=== PATIENT | male | born 1975 | race Caucasian/White ===

== ENCOUNTER 2016-11-30 10:07 | Emergency (ER) | payer OTHER ==
[2016-11-30 10:18] VITALS: BP 133/77; PULSE 80; TEMP 98.1; BMI 45.6
[2016-11-30] MEDS ORDERED: predniSONE 20 MG TABLET (UD) PO ONE (10:48)
[2016-11-30] MEDS ORDERED: ALBUTEROL SO4 2.5/IPRATROPIUM 0.5 INH SOL 3 ML VIAL.NEB. NEB ONE ×2 (10:48→10:49)
--- NOTE | 2016-11-30 10:49 | PDOC ---
History of Present Illness - General Chief Complaint: Asthma Stated Complaint: SOB Time Seen by Provider: 11/30/16 10:48 History Source: Patient Exam Limitations: No Limitations - History of Present Illness Initial Comments: 11/30/16 10:49 Patient came to emergency department for evaluation of cough, wheezing, cold symptoms that exacerbated his asthma. Denies ear or throat pain pain. No fevers and no phlegm production. States has been using albuterol at home but was not resolving well. 11/30/16 12:28 11/30/16 15:08 Timing/Duration: reports: constant, changing over time, getting worse Severity: reports: mild, moderate Associated Symptoms: reports: cough, fever/chills, nasal congestion, nasal drainage, shortness of breath. denies: denies symptoms Past History - Travel Traveled outside of the country in the last 30 days: No Close contact w/someone who was outside of country & ill: No - Past Medical History Allergies/Adverse Reactions: Allergies Allergy/AdvReac Type Severity Reaction Status Date / Time Iodinated Contrast Media - Allergy Severe seizures Verified 11/30/16 10:18 Oral and shellfish derived Allergy Intermediate Verified 11/30/16 10:18 Home Medications: Ambulatory Orders Prednisone [Deltasone -] 20 mg PO BID #10 tablet 11/30/16 Asthma: Yes - Immunization History Immunization Up to Date: Yes - Psycho/Social/Smoking Cessation Hx Anxiety: No Suicidal Ideation: No Smoking History: Never smoked Have you smoked in the past 12 months: Yes Number of Cigarettes Smoked Daily: 10 If you are a former smoker, when did you quit?: aug 2016 Information on smoking cessation initiated: No 'Breaking Loose' booklet given: 05/01/16 Hx Alcohol Use: No Drug/Substance Use Hx: No Substance Use Type: Alcohol Respiratory Specific PMHX - Complaint Specific PMHX Bronchitis: No Pneumonia: No Pulmonary Embolus: No Review of Systems - Review of Systems Able to Perform ROS?: Yes Is the patient limited [place] proficient: Yes Constitutional: Yes: Symptoms Reported, See HPI, Malaise. No: Chills, Fever HEENTM: Yes: Symptoms Reported, Nose Congestion. No: Throat Pain, Throat Swelling Respiratory: Yes: Symptoms reported, See HPI, Cough, Shortness of Breath, Wheezing Integumentary: Yes: See HPI. No: Symptoms Reported Neurological: No: Symptoms reported All Other Systems: Reviewed and Negative *Physical Exam - Vital Signs Last Vital Signs Temp Pulse Resp BP Pulse Ox 98.1 F 80 18 133/77 96 11/30/16 10:14 11/30/16 10:14 11/30/16 10:14 11/30/16 10:14 11/30/16 10:14 - Physical Exam General Appearance: Yes: Nourished, Appropriately Dressed, Apparent Distress, Mild Distress HEENT: positive: ROBERT, Normal ENT Inspection, TMs Normal, Pharynx Normal Neck: positive: Supple. negative: Lymphadenopathy (R), Lymphadenopathy (L) Respiratory/Chest: positive: Wheezing (tight wheezing and diminished breath sounds bilaterally, ). negative: Lungs Clear, Normal Breath Sounds Gastrointestinal/Abdominal: positive: Soft. negative: Normal Bowel Sounds Extremity: positive: Normal Capillary Refill, Normal Inspection Integumentary: positive: Normal Color, Dry, Pale Neurologic: positive: director software quality assurance II-XII NML intact, Fully Oriented, Alert, Normal Mood/ Affect, Normal Response, Motor Strength 5/5 Progress Note - Progress Note Progress Note: Asthma exacerbation, treated with 2 duo nebs and 60 mg of prednisone with good relief of some symptoms. States is breathing better and ready for discharge. Medical Decision Making - Medical Decision Making 11/30/16 12:12 Much improved after 2 duo nebs and 60 mg prednisone. Patient states feeling much improved and ready for discharge. Will prescribe 40 mg of prednisone and have follow-up with Dr. Fitzpatrick early next week for reevaluation 11/30/16 12:32 *DC/Admit/Observation/Transfer Diagnosis at time of Disposition: Asthma with exacerbation Qualifiers: Asthma severity: mild intermittent Qualified Code(s): J45.21 - Mild intermittent asthma with (acute) exacerbation - Discharge Dispostion Disposition: HOME Condition at time of disposition: Stable Admit: No - Prescriptions Prescriptions: Prednisone [Deltasone -] 20 mg PO BID #10 tablet - Referrals Referrals: John Fitzpatrick MD [Primary Care Provider] - - Patient Instructions Printed Discharge Instructions: Asthma -- Adult Additional Instructions: Rest, drink lots of fluids: Teas, water, soups, Pedialyte Saltwater gargles Steamy showers/seem to face break up mucus Avoid contact with others until fevers and cough resolved Lots of handwashing and good hygiene Continue akoh-fky-higwlam medications for symptomatic relief 2 new albuterol nebulizers every 4-6 hours for the next 3 days then as needed Continue prednisone 40 mg daily for the next 5 days Tylenol or Motrin for fever and pain Followup with private physician in one to 2 days for reevaluation Return to emergency department for worsened symptoms, fevers, dehydration - Post Discharge Activity Work/School Note: Back to Work
[2016-11-30] MEDS ORDERED: predniSONE 20 MG TABLET (UD) ONE (10:54)
== END 2016-11-30 12:35 | disposition home or self-care (01) ==
LOC: JERFT 10:07
PROC: 3E0F7GC Introduction of Other Therapeutic Substance into Respiratory Tract, Via Natural or Artificial Opening (ICD-10-PCS; principal; 2016-11-30)
DX: J45.21 Mild intermittent asthma with (acute) exacerbation (principal)
CPT/HCPCS: 99281-25

== ENCOUNTER 2017-01-11 07:08 | Emergency (ER) | payer OTHER ==
[2017-01-11 07:14] VITALS: BP 152/85; PULSE 84; TEMP 98; BMI 45.6
[2017-01-11] MEDS ORDERED: LORATADINE 10 MG TABLET PO ONE (07:32)
[2017-01-11] MEDS ORDERED: IBUPROFEN 600 MG TABLET (FP) PO ONE ×2 (07:32→07:36)
[2017-01-11] MEDS ORDERED: LORATADINE 10 MG TABLET ONE (07:36)
--- NOTE | 2017-01-11 07:58 | PDOC ---
History of Present Illness - General Chief Complaint: Respiratory Stated Complaint: COUGH/SORE THROAT Time Seen by Provider: 01/11/17 07:20 History Source: Patient Exam Limitations: No Limitations - History of Present Illness Initial Comments: 01/11/17 07:33 41-year-old male with history of asthma presents the ED with nasal congestion, sore throat, left ear pain, and mild dry cough. Patient states symptoms began 3 days ago and has been taking cough drops with minimal improvement. Patient denies wheezing, shortness of breath, fever, chills, headache, neck stiffness, or difficulty swallowing. Patient denies recent sick contacts or recent travel. Timing/Duration: reports: other Severity: reports: mild Possible Cause: Yes: no prior episodes Associated Symptoms: reports: cough, earache, nasal congestion, sore throat Past History - Past Medical History Allergies/Adverse Reactions: Allergies Allergy/AdvReac Type Severity Reaction Status Date / Time Iodinated Contrast Media - Allergy Severe seizures Verified 01/11/17 07:11 Oral and shellfish derived Allergy Intermediate Verified 01/11/17 07:11 Home Medications: Ambulatory Orders NK [No Known Home Medication] 01/11/17 Asthma: Yes - Immunization History Immunization Up to Date: Yes - Psycho/Social/Smoking Cessation Hx Anxiety: No Suicidal Ideation: No Smoking History: Never smoked Have you smoked in the past 12 months: Yes Number of Cigarettes Smoked Daily: 10 If you are a former smoker, when did you quit?: aug 2016 Information on smoking cessation initiated: No 'Breaking Loose' booklet given: 05/01/16 Hx Alcohol Use: No Drug/Substance Use Hx: No Substance Use Type: Alcohol Patient Lives Alone: No Lives with/in: parents Respiratory Specific PMHX - Complaint Specific PMHX Bronchitis: No Pneumonia: No Pulmonary Embolus: No Review of Systems - Review of Systems Able to Perform ROS?: Yes Constitutional: No: Symptoms Reported HEENTM: Yes: Ear Pain, Throat Pain Respiratory: Yes: Cough Cardiac (ROS): No: Symptoms Reported ABD/GI: No: Symptoms Reported : No: Symptoms Reported Musculoskeletal: No: Symptoms Reported Integumentary: No: Symptoms Reported Neurological: No: Symptoms reported Endocrine: No: Symptoms Reported Hematologic/Lymphatic: No: Symptoms Reported *Physical Exam - Vital Signs Last Vital Signs Temp Pulse Resp BP Pulse Ox 98 F 84 18 152/85 97 01/11/17 07:11 01/11/17 07:11 01/11/17 07:11 01/11/17 07:11 01/11/17 07:11 - Physical Exam General Appearance: Yes: Nourished, Appropriately Dressed. No: Apparent Distress HEENT: positive: TMs Normal, Pharynx Normal (mild eythema), Nasal Congestion ( left nare), Rhinorrhea (clear). negative: Pale Conjunctivae Neck: positive: Supple. negative: Lymphadenopathy (R), Lymphadenopathy (L) Respiratory/Chest: positive: Lungs Clear, Normal Breath Sounds. negative: Respiratory Distress, Accessory Muscle Use Cardiovascular: positive: Regular Rhythm, Regular Rate. negative: Murmur Integumentary: positive: Normal Color, Warm, Moist Neurologic: positive: Motor Strength 5/5 (ambulatory) ED Treatment Course - Medications Given in the ED: ED Medications Discontinued Medications Generic Name Dose Route Start Last Admin Trade Name Freq PRN Reason Stop Dose Admin Ibuprofen 600 mg 01/11/17 07:32 01/11/17 07:37 Motrin - PO 01/11/17 07:33 600 mg ONCE ONE Administration Loratadine 10 mg 01/11/17 07:32 01/11/17 07:37 Claritin - PO 01/11/17 07:33 10 mg ONCE ONE Administration Medical Decision Making - Medical Decision Making 01/11/17 07:39 Patient history of asthma presenting with URI symptoms. Patient had no acute findings on exam except for mild erythema to the left tonsillar region. Patient also with left nare rhinorrhea likely with postnasal drip. Patient ordered for Claritin and Motrin. Patient be discharged home with the same. *DC/Admit/Observation/Transfer Diagnosis at time of Disposition: Postnasal drip, Sore throat - Discharge Dispostion Disposition: HOME Condition at time of disposition: Good - Patient Instructions Printed Discharge Instructions: Sore Throat, DI for Nasal Congestion Additional Instructions: Please take Claritin daily for the next 7 days and take Motrin for throat discomfort for the next 7 days as prescribed. Eat soft foods and keep nasal passages clear
== END 2017-01-11 08:09 | disposition home or self-care (01) ==
LOC: JER 07:08
DX: J02.9 Acute pharyngitis, unspecified (principal); R09.82 Postnasal drip
CPT/HCPCS: 99281-25

== ENCOUNTER 2017-02-18 16:54 | Emergency (ER) | payer OTHER ==
--- NOTE | 2017-02-18 16:59 | PDOC ---
History of Present Illness - General Chief Complaint: Respiratory Stated Complaint: COUGH Time Seen by Provider: 02/18/17 16:58 History Source: Patient Exam Limitations: No Limitations - History of Present Illness Initial Comments: 02/18/17 17:09 41 y/o male with cough and congestion for 2 days. Denies fever or chills. Productive cough. No SOB or chest pain. Has not had to use inhaler. Denies traveling. No N/V/d/c. Father is home with same symptoms. Severity: reports: mild Past History - Past Medical History Allergies/Adverse Reactions: Allergies Allergy/AdvReac Type Severity Reaction Status Date / Time Iodinated Contrast Media - Allergy Severe seizures Verified 01/11/17 07:11 Oral and shellfish derived Allergy Intermediate Verified 01/11/17 07:11 Home Medications: Ambulatory Orders Loratadine [Claritin] 10 mg PO DAILY #7 tablet 01/11/17 Albuterol 0.083% Nebulizer Rasheead [Ventolin 0.083% Nebulizer Soln -] 1 neb NEB Q6H PRN 02/18/17 Albuterol Sulfate Inhaler - [Ventolin Hfa Inhaler -] 2 inh PO Q6H PRN 02/18/17 Azithromycin [Zithromax -] 250 mg PO UTDICT #6 tab 02/18/17 Montelukast Na [Singulair -] 10 mg PO HS 02/18/17 Asthma: Yes - Immunization History Immunization Up to Date: Yes - Psycho/Social/Smoking Cessation Hx Anxiety: No Suicidal Ideation: No Smoking History: Never smoked Have you smoked in the past 12 months: Yes Number of Cigarettes Smoked Daily: 10 If you are a former smoker, when did you quit?: aug 2016 'Breaking Loose' booklet given: 05/01/16 Hx Alcohol Use: No Drug/Substance Use Hx: No Substance Use Type: Alcohol Respiratory Specific PMHX - Complaint Specific PMHX Bronchitis: No Pneumonia: No Pulmonary Embolus: No Review of Systems - Review of Systems Able to Perform ROS?: Yes Is the patient limited [place] proficient: No Constitutional: No: Chills, Fever HEENTM: No: Throat Pain Respiratory: Yes: Cough. No: Shortness of Breath Cardiac (ROS): No: Chest Pain, Palpitations ABD/GI: No: Diarrhea, Nausea, Vomiting Integumentary: No: Bruising All Other Systems: Reviewed and Negative *Physical Exam - Physical Exam General Appearance: Yes: Nourished, Appropriately Dressed. No: Apparent Distress HEENT: positive: EOMI, ROBERT, Normal ENT Inspection Neck: positive: Trachea midline, Normal Thyroid, Supple. negative: Rigid Respiratory/Chest: positive: Lungs Clear, Normal Breath Sounds. negative: Chest Tender, Respiratory Distress Cardiovascular: positive: Regular Rhythm, Regular Rate, S1, S2. negative: JVD, Murmur Vascular Pulses: Femoral (R): 4+, Femoral (L): 4+, Carotid (R): 4+, Carotid (L) : 4+, Dorsalis-Pedis (R): 4+, Doralis-Pedis (L): 4+ Gastrointestinal/Abdominal: positive: Normal Bowel Sounds, Flat, Soft. negative : Tender Lymphatic: negative: Adenopathy, Tenderness, Other Musculoskeletal: positive: Normal Inspection. negative: CVA Tenderness Extremity: positive: Normal Capillary Refill, Normal Inspection, Normal Range of Motion, Tender Integumentary: positive: Normal Color, Dry, Warm Neurologic: positive: sheet taker II-XII NML intact, Fully Oriented, Alert, Normal Mood/ Affect, Normal Response, Motor Strength 5/5 Progress Note - Progress Note Progress Note: Pt appears to have bronchitis. Continue Albuterol MDI as needed Z-pack as directed If worsen return to ER Pt is in agreement with plan. *DC/Admit/Observation/Transfer Diagnosis at time of Disposition: Bronchitis - Discharge Dispostion Disposition: HOME Condition at time of disposition: Good Admit: No - Prescriptions Prescriptions: Azithromycin [Zithromax -] 250 mg PO UTDICT #6 tab - Referrals Referrals: John Fitzpatrick MD [Primary Care Provider] - - Patient Instructions Printed Discharge Instructions: DI for Acute Bronchitis Additional Instructions: Z-pack as directed Ventolin MDI 2 puffs 4x/day as needed If worsen return to ER
[2017-02-18 17:15] VITALS: BP 146/94; PULSE 75; TEMP 98.5; BMI 44.1
== END 2017-02-18 17:21 | disposition home or self-care (01) ==
LOC: FER 16:54
DX: J40 Bronchitis, not specified as acute or chronic (principal); Z87.891 Personal history of nicotine dependence
CPT/HCPCS: 99281-25

== ENCOUNTER 2017-11-07 07:54 | Emergency (ER) | payer OTHER ==
[2017-11-07 08:08] VITALS: BP 120/79; PULSE 78; TEMP 98.6; BMI 42.5
[2017-11-07] MEDS ORDERED: predniSONE 20 MG TABLET (UD) PO ONE (08:46)
[2017-11-07] MEDS ORDERED: ALBUTEROL SO4 2.5/IPRATROPIUM 0.5 INH SOL 3 ML VIAL.NEB. NEB ONE ×2 (08:46→08:51)
[2017-11-07] MEDS ORDERED: predniSONE 20 MG TABLET (UD) ONE (08:50)
--- NOTE | 2017-11-07 08:53 | PDOC ---
History of Present Illness - General Chief Complaint: Asthma Stated Complaint: ASTHMA Time Seen by Provider: 11/07/17 08:28 History Source: Patient Exam Limitations: No Limitations - History of Present Illness Initial Comments: 11/07/17 08:47 42 yr male obese history of asthma presents with cough for 2 days and wheezing, states coughing green phlegm. no history of intubations. Timing/Duration: reports: getting worse Severity: reports: moderate (2 days) Possible Cause: Yes: occasional episodes Past History - Past Medical History Allergies/Adverse Reactions: Allergies Allergy/AdvReac Type Severity Reaction Status Date / Time Iodinated Contrast- Oral and Allergy Severe seizures Verified 11/07/17 08:08 IV Dye shellfish derived Allergy Intermediate Verified 11/07/17 08:08 Home Medications: Ambulatory Orders Albuterol 0.083% Nebulizer Rasheeda [Ventolin 0.083% Nebulizer Soln -] 1 neb NEB Q6H PRN 02/18/17 Albuterol Sulfate Inhaler - [Ventolin Hfa Inhaler -] 2 inh PO Q6H PRN 02/18/17 Azithromycin [Zithromax 250mg Tablets -] 250 mg PO UTDICT #6 tab 11/07/17 Prednisone [Deltasone -] 40 mg PO UTDICT #8 tablet 11/07/17 Asthma: Yes COPD: No Other medical history: obesity - Immunization History Immunization Up to Date: Yes - Suicide/Smoking/Psychosocial Hx Smoking History: Current some day smoker Have you smoked in the past 12 months: Yes Number of Cigarettes Smoked Daily: 20 If you are a former smoker, when did you quit?: aug 2016 Information on smoking cessation initiated: No 'Breaking Loose' booklet given: 05/01/16 Hx Alcohol Use: No Drug/Substance Use Hx: No Substance Use Type: Alcohol Respiratory Specific PMHX - Complaint Specific PMHX Bronchitis: No Pneumonia: No Pulmonary Embolus: No Review of Systems - Review of Systems Able to Perform ROS?: Yes Is the patient limited Monegasque proficient: No Constitutional: No: Symptoms Reported HEENTM: Yes: Symptoms Reported Respiratory: Yes: Symptoms reported *Physical Exam - Vital Signs Last Vital Signs Temp Pulse Resp BP Pulse Ox 98.6 F 78 18 120/79 98 11/07/17 08:04 11/07/17 08:04 11/07/17 08:04 11/07/17 08:04 11/07/17 08:04 - Physical Exam General Appearance: Yes: Nourished, Appropriately Dressed HEENT: positive: EOMI, ROBERT Neck: positive: Supple. negative: Lymphadenopathy (R), Lymphadenopathy (L) Respiratory/Chest: positive: Wheezing Cardiovascular: positive: Regular Rhythm, Regular Rate Gastrointestinal/Abdominal: positive: Normal Bowel Sounds, Soft Musculoskeletal: positive: Normal Inspection Extremity: positive: Normal Capillary Refill, Normal Inspection, Normal Range of Motion Integumentary: positive: Normal Color, Dry, Warm Neurologic: positive: Fully Oriented, Alert, Normal Mood/Affect, Normal Response , Motor Strength 03/16 Medical Decision Making - Medical Decision Making 11/07/17 08:53 cc: cough green phlegm, wheezing afebrile no abd pain or chest pain neg nvd speaking full sentences clearly no distress will give duoneb prednisone and re-evaluate *DC/Admit/Observation/Transfer Diagnosis at time of Disposition: Asthma Qualifiers: Asthma severity: mild Asthma persistence: intermittent Asthma complication type : uncomplicated Qualified Code(s): J45.20 - Mild intermittent asthma, uncomplicated URI (upper respiratory infection) Qualifiers: URI type: unspecified URI Qualified Code(s): J06.9 - Acute upper respiratory infection, unspecified - Discharge Dispostion Disposition: HOME Condition at time of disposition: Good - Prescriptions Prescriptions: Azithromycin [Zithromax 250mg Tablets -] 250 mg PO UTDICT #6 tab Prednisone [Deltasone -] 40 mg PO UTDICT #8 tablet - Referrals Referrals: John Fitzpatrick MD [Primary Care Provider] - - Patient Instructions Additional Instructions: take the next dose of prednisone tomorrow morning take the Zpack as directed use your inhaler every 4hrs use your nebulizer every 4hrs follow with your PMD in 2-3 days for follow up return to ER for any worsening symptoms drink at least 2 liters of water a day - Post Discharge Activity
== END 2017-11-07 09:53 | disposition home or self-care (01) ==
LOC: JERFT 07:54
PROC: 3E0F7GC Introduction of Other Therapeutic Substance into Respiratory Tract, Via Natural or Artificial Opening (ICD-10-PCS; principal; 2017-11-07)
DX: J45.20 Mild intermittent asthma, uncomplicated (principal); J06.9 Acute upper respiratory infection, unspecified; F17.210 Nicotine dependence, cigarettes, uncomplicated; E66.9 Obesity, unspecified; Z68.41 Body mass index [BMI] 40.0-44.9, adult
CPT/HCPCS: 99281-25

== ENCOUNTER 2018-07-26 14:28 | Emergency (ER) | payer OTHER ==
[2018-07-26 15:07] VITALS: BP 140/95; PULSE 96; TEMP 99.9; BMI 45.6
[2018-07-26] MEDS ORDERED: predniSONE 20 MG TABLET (UD) PO ONE (15:07)
--- NOTE | 2018-07-26 15:07 | PDOC ---
Rapid Medical Evaluation Time Seen by Provider: 07/26/18 14:58 Medical Evaluation: Allergies Allergy/AdvReac Type Severity Reaction Status Date / Time Iodinated Contrast- Oral and Allergy Severe seizures Verified 07/26/18 15:03 IV Dye shellfish derived Allergy Intermediate Verified 07/26/18 15:03 07/26/18 15:04 I have performed a brief in-person evaluation of this patient. The patient presents with a chief complaint of:asthma flare x 2 days. H/o asthma , uses nebs and pump w/ no relief, last admission last year, no intubations, quit smoking 6 months ago (20 pack yr hx) Pertinent physical exam findings:Stable w/ clear chest/lungs I have ordered the following:duoneb/prednisone The patient will proceed to the ED for further evaluation. Discharge Disposition - Diagnosis Asthma Qualifiers: Asthma severity: mild Asthma persistence: unspecified Asthma complication type : unspecified Qualified Code(s): J45.998 - Other asthma - Referrals - Patient Instructions - Post Discharge Activity
[2018-07-26] MEDS ORDERED: predniSONE 20 MG TABLET (UD) ONE (15:18)
[2018-07-26] MEDS ORDERED: ALBUTEROL SO4 2.5/IPRATROPIUM 0.5 INH SOL 3 ML VIAL.NEB. NEB ONE (15:18)
[2018-07-26] MEDS: ALBUTEROL SO4 2.5/IPRATROPIUM 0.5 INH SOL 3 ML VIAL.NEB. NEB SCH ×2 (15:22→15:46)
--- NOTE | 2018-07-26 15:25 | PDOC ---
History of Present Illness - General Chief Complaint: Asthma Stated Complaint: BREATHING PROBLEMS Time Seen by Provider: 07/26/18 14:58 History Source: Patient Exam Limitations: No Limitations - History of Present Illness Initial Comments: 07/26/18 15:17 43 yr male with history of asthma no intubations presents with 2 days cough chest tight wheezing, pt used albuterol neb at home and inhaler no relief. no fever no sore throat no shortness of breath. pt with history of obesity, asthma. Past History - Past History Allergies/Adverse Reactions: Allergies Iodinated Contrast- Oral and IV Dye Allergy (Severe, Verified 07/26/18 15:03) seizures shellfish derived Allergy (Intermediate, Verified 07/26/18 15:03) Home Medications: Ambulatory Orders Albuterol 0.083% Nebulizer Rasheeda [Ventolin 0.083% Nebulizer Soln -] 1 neb NEB Q6H PRN 02/18/17 Albuterol Sulfate Inhaler - [Ventolin HFA Inhaler -] 2 inh PO Q6H PRN #1 inhaler 07/26/18 Prednisone [Deltasone] 40 mg PO DAILY #10 tablet 07/26/18 Immunization Status Up to Date: Yes Tetanus Status: Unknown - Social History Smoking Status: Former smoker Number of Cigarettes Smoked Per Day: 20 *Physical Exam - Vital Signs Last Vital Signs Temp Pulse Resp BP Pulse Ox 99.9 F H 96 H 20 140/95 96 07/26/18 15:03 07/26/18 15:03 07/26/18 15:03 07/26/18 15:03 07/26/18 15:03 - Physical Exam General Appearance: Yes: Nourished, Appropriately Dressed HEENT: positive: EOMI, ROBERT Respiratory/Chest: positive: Wheezing (exp ). negative: Respiratory Distress, Labored Respiration, Decreased Breath Sounds, Crackles, Rales, Rhonchi Cardiovascular: positive: Regular Rhythm, Regular Rate Gastrointestinal/Abdominal: positive: Normal Bowel Sounds, Soft Musculoskeletal: positive: Normal Inspection Neurologic: positive: Fully Oriented, Alert, Normal Mood/Affect, Normal Response , Motor Strength 5/5 Medical Decision Making - Medical Decision Making 07/26/18 15:19 cc: cough chest tight for 2 days wheezing at home used inhaler and nebulizer without relief will give duoneb and prednisone now 07/26/18 15:49 lungs CTA after nebulizers pt feels better speaking full sentences clear sentences pt feels better to go home will follow up with his pulmonary doctor. *DC/Admit/Observation/Transfer Diagnosis at time of Disposition: Asthma Qualifiers: Asthma severity: mild Asthma persistence: unspecified Asthma complication type : unspecified Qualified Code(s): J45.998 - Other asthma - Discharge Dispostion Disposition: HOME Condition at time of disposition: Good - Prescriptions Prescriptions: Albuterol Sulfate Inhaler - [Ventolin HFA Inhaler -] 2 inh PO Q6H PRN #1 inhaler PRN Reason: Short Of Breath/Wheezing Prednisone [Deltasone] 40 mg PO DAILY #10 tablet - Referrals Referrals: John Fitzpatrick MD [Primary Care Provider] - - Patient Instructions Printed Discharge Instructions: Asthma -- Adult Additional Instructions: next dose of prednisone tomorrow morning use your inhaler every 4hrs call your pulmonary doctor to follow up next week return to ER for any worsening symptoms - Post Discharge Activity
== END 2018-07-26 15:54 | disposition home or self-care (01) ==
LOC: JERFT 14:28
PROC: 3E0F7GC Introduction of Other Therapeutic Substance into Respiratory Tract, Via Natural or Artificial Opening (ICD-10-PCS; principal; 2018-07-26)
DX: J45.998 Other asthma (principal)
CPT/HCPCS: 94640; 99281-25; J7620

== ENCOUNTER 2019-07-10 06:22 | Emergency (ER) | payer OTHER ==
[2019-07-10] MEDS ORDERED: ALBUTEROL SO4 2.5/IPRATROPIUM 0.5 INH SOL 3 ML VIAL.NEB. NEB ONE ×2 (06:38→07:59)
--- NOTE | 2019-07-10 06:40 | PDOC ---
History of Present Illness - General Chief Complaint: Asthma Stated Complaint: DIFFICULTY BREATHING Time Seen by Provider: 07/10/19 06:35 - History of Present Illness Initial Comments: 07/10/19 06:35 44m smoker hx COPD/Asthma p/w SOB x 3 days Wheezing, not improved with home nebulizer. Cough prod of whitish sputum. No fevers. No chest pain. Never intubated, last ED visit for asthma 1 yr ago. Past History - Past Medical History Allergies/Adverse Reactions: Allergies Allergy/AdvReac Type Severity Reaction Status Date / Time Iodinated Contrast Media Allergy Severe seizures Verified 07/26/18 15:03 shellfish derived Allergy Intermediate Verified 07/26/18 15:03 Home Medications: Ambulatory Orders Albuterol 0.083% Nebulizer Rasheeda [Ventolin 0.083% Nebulizer Soln -] 1 neb NEB Q6H PRN 02/18/17 Albuterol Sulfate Inhaler - [Ventolin HFA Inhaler -] 2 inh PO Q6H PRN #1 inhaler 07/26/18 Prednisone [Deltasone] 40 mg PO DAILY #10 tablet 07/26/18 Asthma: Yes COPD: No - Immunization History Immunization Up to Date: Yes - Suicide/Smoking/Psychosocial Hx Smoking History: Former smoker Have you smoked in the past 12 months: Yes Number of Cigarettes Smoked Daily: 20 If you are a former smoker, when did you quit?: 10/28 'Breaking Loose' booklet given: 05/01/16 Hx Alcohol Use: No Drug/Substance Use Hx: No Substance Use Type: Alcohol Review of Systems - Review of Systems Respiratory: Yes: SOB with Exertion, SOB at Rest, Wheezing Cardiac (ROS): Yes: Chest Tightness. No: Chest Pain ABD/GI: No: Nausea, Vomiting *Physical Exam - Physical Exam Comments: 07/10/19 06:37 sitting up in stretcher speaking in full sentences appears uncomfortable rrr s1 s2 no mrg expiratory wheezing bilaterally soft obese abdomen HEENT: positive: EOMI Medical Decision Making - Medical Decision Making 07/10/19 06:38 COPD exacerbation combinebs x 3 Prednisone 60mg CXR reassess *DC/Admit/Observation/Transfer Diagnosis at time of Disposition: COPD exacerbation, Shortness of breath - Referrals Referrals: John Fitzpatrick MD [Primary Care Provider] - - Patient Instructions - Post Discharge Activity
[2019-07-10] MEDS ORDERED: predniSONE 20 MG TABLET (UD) PO ONE (06:43)
[2019-07-10 06:57] VITALS: TEMP 97.7; BMI 45.6
[2019-07-10] MEDS: ALBUTEROL SO4 2.5/IPRATROPIUM 0.5 INH SOL 3 ML VIAL.NEB. NEB SCH ×5 (06:57→08:16)
[2019-07-10] MEDS ORDERED: predniSONE 20 MG TABLET (UD) ONE (07:02)
[2019-07-10] MEDS ORDERED: ASPIRIN 81 MG CHEWABLE TABLETS PO ONE (07:49)
[2019-07-10] MEDS ORDERED: ASPIRIN 81 MG CHEWABLE TABLETS ONE (07:59)
--- NOTE | 2019-07-10 08:23 | PDOC ---
*Physical Exam - Vital Signs Last Vital Signs Temp Pulse Resp BP Pulse Ox 97.7 F 82 24 H 132/94 95 07/10/19 06:35 07/10/19 06:35 07/10/19 06:35 07/10/19 06:35 07/10/19 06:35 - Physical Exam Comments: 07/10/19 08:17 Afebrile, O2 sat 97% on room air, respiratory rate 18 Obese male seated comfortably in stretcher, slightly anxious and short of breath , but otherwise alert and speaking full sentences Moist mucosa, neck supple No JVD Heart is regular without murmur, S1-S2 Lungs are clear to assess rotation bilaterally, no crackles or wheezing or prolonged expiration or focally decreased breath sounds Abdomen benign No edema or calf tenderness Heart Score/ECG Review - History History: Slightly suspicious - Electrocardiogram EKG: Normal - Age Age: </= 45 - Risk Factors Based on the list above the patient has:: 1-2 risk factors - Troponin Troponin: </= normal limit - Score Heart Score - Total: 1 #1 ECG reviewed & interpreted by me at: 07:51 General ECG Interpretation: Sinus Rhythm, Normal Rate (84), Normal Intervals ( qtc 467), No acute ischemic changes Compared to previous ECG there are: No significant change (c/w 09/19/16) ED Treatment Course - LABORATORY CBC & Chemistry Diagram: 07/10/19 08:09 07/10/19 08:09 - Medications Given in the ED: ED Medications Discontinued Medications Generic Name Dose Route Start Last Admin Trade Name Mehul PRN Reason Stop Dose Admin Albuterol/Ipratropium 1 amp 07/10/19 06:45 07/10/19 07:16 Duoneb - NEB 07/10/19 07:16 1 amp Q15M DALE Administration Albuterol/Ipratropium 1 amp 07/10/19 08:00 07/10/19 08:16 Duoneb - NEB 07/10/19 08:16 1 amp Q15M DALE Administration Aspirin 325 mg 07/10/19 07:49 07/10/19 08:02 Asa - PO 07/10/19 07:50 325 mg ONCE ONE Administration Prednisone 60 mg 07/10/19 06:43 07/10/19 07:10 Deltasone - PO 07/10/19 06:44 60 mg ONCE ONE Administration Medical Decision Making - Medical Decision Making 07/10/19 08:20 Received signout on this 44-year-old male with history of asthma and smoking history who presented with 3 days of chest tightness and shortness of breath, slight dyspnea on exertion, not improving with albuterol nebulizers. The chest tightness is constant and similar to past asthma exacerbations, however the patient has not felt or heard any wheezing and has had no relief from his albuterol, which are atypical for his asthma exacerbations. He typically has about one exacerbation for years that brings him to the emergency department, he was admitted about 1.5 years ago for an asthma exacerbation. At baseline, he has no exercise limitations, has no recent DVT or PE risk factors, denies any infectious complaints of fever/chills/productive cough. Never had a cardiac workup beyond an EKG, presented this morning for evaluation secondary to persistence of symptoms and difficulty sleeping last night. 44-year-old male presented for asthma/COPD exacerbation, wheezing on arrival but now resolved on exam s/p first neb. Given his morbid obesity and smoking history together with complaint of chest tightness and dyspnea, ACS should be ruled out. Patient has had constant symptoms for 3 days, so a targeted cardiac workup would be reassuring. Check labs including troponin EKG shows no acute ischemic changes and no change compared to 2016 Chest x-ray shows no acute pathology Received prednisone, received 1 DuoNeb, will give DuoNeb 2 Will add aspirin Reassess 07/10/19 11:32 workup negative, including trop and ddimer. pt feels much better after nebs, now ambulating comfortably and the tightness has resolved. heart score 1, good candidate for outpt f/u given low suspicion and negative preliminary workup. o2 sat normal, agrees with d/c plan on steroids and f/u with Dr. Fitzpatrick - call placed to office for update. *DC/Admit/Observation/Transfer Diagnosis at time of Disposition: COPD exacerbation, Shortness of breath - Discharge Dispostion Disposition: HOME Condition at time of disposition: Improved - Prescriptions Prescriptions: Prednisone [Prednisone 50 MG TABLETS] 50 mg PO DAILY #5 tablet - Referrals Referrals: John Fitzpatrick MD [Primary Care Provider] - - Patient Instructions Printed Discharge Instructions: DI for Asthma -- Adult Additional Instructions: Activity as tolerated. Stay hydrated. Blood tests, an EKG, and a chest xray performed today showed no acute abnormalities. Your symptoms are likely due to an asthma exacerbation. Continue using the nebulizer as needed for shortness of breath/wheezing. Also take prednisone as prescribed. Continue your medications as previously prescribed by your physician. You should follow up with Dr. Fitzpatrick as soon as possible regarding today's emergency department visit. I recommend you have a heart evaluation as an outpatient given the symptoms of chest pain. Do your best to completely stop smoking. Return to the emergency department for any new or concerning symptoms, particularly persistent or worsening shortness of breath or chest pain, fever/ chills, weakness. - Post Discharge Activity
[2019-07-10 08:31] LABS: EOS % 4.2 % (0-4.5); HEMATOCRIT 41.4 % (35.4-49); HEMOGLOBIN 14.3 GM/dL (11.7-16.9); LYMPH % 29.3 % (8-40); MCH 32.5 pg (25.7-33.7); MCHC 34.5 g/dl (32.0-35.9); MEAN CELL VOLUME 94.1 fl (80-96); NEUT % 58.5 % (42.8-82.8); PLATELET COUNT 242 K/MM3 (134-434); RDW 12.9 % (11.9-15.9); WHITE BLOOD COUNT 8.9 K/mm3 (4.0-10.0)
[2019-07-10 08:54] LABS: INR 0.97 (0.83-1.09); PROTHROMBIN TIME (PATIENT) 11.4 SEC (9.7-13.0)
[2019-07-10 09:07] LABS: ALBUMIN 3.7 g/dl (3.4-5.0); ALK PHOS 70 U/L (45-117); ANION GAP 6 MMOL/L (8-16); BILIRUBIN,TOTAL 0.3 mg/dL (0.2-1); BLOOD UREA NITROGEN 13.6 mg/dL (7-18); CALCIUM 8.6 mg/dL (8.5-10.1); CHLORIDE 108 mmol/L (98-107); CO2 26 mmol/L (21-32); GLUCOSE,RANDOM 115 mg/dL (74-106); POTASSIUM 3.8 mmol/L (3.5-5.1); SGOT/AST 16 U/L (15-37); SGPT/ALT 40 U/L (13-61); SODIUM 139 mmol/L (136-145)
--- NOTE | 2019-07-10 10:32 | EKG ---
Test Reason : Blood Pressure : / mmHG Vent. Rate : 084 BPM Atrial Rate : 084 BPM P-R Int : 150 ms QRS Dur : 092 ms QT Int : 396 ms P-R-T Axes : 038 013 027 degrees QTc Int : 467 ms NORMAL SINUS RHYTHM WITH SINUS ARRHYTHMIA NORMAL ECG WHEN COMPARED WITH ECG OF 19-SEP-2016 14:27, NO SIGNIFICANT CHANGE WAS FOUND Confirmed by CINTHIA RODNEY MD ([id number]) on 07/10/2019 10:32:00 AM Referred By: Confirmed By:CINTHIA RODNEY MD
[2019-07-10 11:58] VITALS: BP 125/81; PULSE 77
== END 2019-07-10 11:58 | disposition home or self-care (01) ==
LOC: JER 06:22
PROC: 3E0F7GC Introduction of Other Therapeutic Substance into Respiratory Tract, Via Natural or Artificial Opening (ICD-10-PCS; principal; 2019-07-10)
PROC: 3E0F7GC Introduction of Other Therapeutic Substance into Respiratory Tract, Via Natural or Artificial Opening (ICD-10-PCS; 2019-07-10)
DX: J44.1 Chronic obstructive pulmonary disease with (acute) exacerbation (principal)
CPT/HCPCS: 36415; 71046-TC-FY; 80053; 82550; 83735; 84484; 85025; 85379; 85610; 93005; 93010; 99284-25

== ENCOUNTER 2019-07-23 12:54 | Emergency (ER) | payer OTHER | END 2019-07-23 14:45 | disposition home or self-care (01) | LOC: JERFT 12:54 ==

== ENCOUNTER → 2019-11-28 | Emergency (ER) | payer OTHER ==
[2019-11-28 18:35] VITALS: BP 143/104; PULSE 67; TEMP 98.7; BMI 42.5
--- NOTE | 2019-12-18 15:03 | PDOC ---
Documentation entered by Talon Cortez SCRIBE, acting as scribe for Fouzia Daniels MD. Fouzia Daniels MD: This documentation has been prepared by the Diego faulkner Aiswarya, SCRIBE, under my direction and personally reviewed by me in its entirety. I confirm that the documentation accurately reflects all work, treatment, procedures, and medical decision making performed by me. History of Present Illness - General Chief Complaint: Cold Symptoms Stated Complaint: COLD SYMPTOMS COUGH SORE THROAT - History of Present Illness Initial Comments: This patient left prior to medical evaluation. Past History - Past Medical History Allergies/Adverse Reactions: Allergies Allergy/AdvReac Type Severity Reaction Status Date / Time Iodinated Contrast Media Allergy Severe seizures Verified 12/01/19 11:29 shellfish derived Allergy Intermediate Verified 12/01/19 11:29 Home Medications: Ambulatory Orders Albuterol 0.083% Nebulizer Arsheeda [Ventolin 0.083% Nebulizer Soln -] 1 neb NEB Q6H PRN 02/18/17 Albuterol Sulfate Inhaler - [Ventolin HFA Inhaler -] 2 inh PO Q6H PRN #1 inhaler 07/26/18 Montelukast Sodium [Singulair] 10 mg PO DAILY 12/01/19 predniSONE [Deltasone -] 40 mg PO DAILY #4 tablet 12/01/19 Asthma: Yes COPD: No - Immunization History Immunization Up to Date: Yes - Psycho Social/Smoking Cessation Hx Smoking History: Current every day smoker Have you smoked in the past 12 months: Yes Number of Cigarettes Smoked Daily: 5 If you are a former smoker, when did you quit?: 10/28 Information on smoking cessation initiated: No 'Breaking Loose' booklet given: 05/01/16 Hx Alcohol Use: Yes (FEW BEERS WEEKLY) Drug/Substance Use Hx: No Substance Use Type: Alcohol Respiratory Specific PMHX - Complaint Specific PMHX Hx Bronchitis: No Hx Pneumonia: No Hx Pulmonary Embolus: No *Physical Exam - Vital Signs Last Vital Signs Temp Pulse Resp BP Pulse Ox 98.7 F 67 18 143/104 H 100 11/28/19 18:24 11/28/19 18:24 11/28/19 18:24 11/28/19 18:24 11/28/19 18:24 Discharge - Discharge Information Problems reviewed: Yes Clinical Impression/Diagnosis: Patient left before evaluation by physician Condition: Stable Disposition: ELOPED - Follow up/Referral - Patient Discharge Instructions - Post Discharge Activity
== END | disposition left against medical advice (07) ==
LOC: FER 18:23
DX: R05 Cough (principal); F17.210 Nicotine dependence, cigarettes, uncomplicated; J45.909 Unspecified asthma, uncomplicated; Z91.013 Allergy to seafood; Z91.041 Radiographic dye allergy status
CPT/HCPCS: 99281-25

== ENCOUNTER 2019-12-01 11:07 | Emergency (ER) | payer OTHER ==
[2019-12-01 11:33] VITALS: BP 138/90; PULSE 66; TEMP 98.1; BMI 42.5
[2019-12-01] MEDS ORDERED: predniSONE 20 MG TABLET (UD) PO ONE ×2 (12:19→12:29)
[2019-12-01] MEDS ORDERED: ALBUTEROL SO4 2.5/IPRATROPIUM 0.5 INH SOL 3 ML VIAL.NEB. NEB ONE (12:24)
[2019-12-01] MEDS ORDERED: predniSONE 20 MG TABLET (UD) ONE (12:24)
[2019-12-01] MEDS: ALBUTEROL SO4 2.5/IPRATROPIUM 0.5 INH SOL 3 ML VIAL.NEB. NEB SCH ×3 (12:29→13:00)
--- NOTE | 2019-12-01 13:16 | PDOC ---
History of Present Illness - General Chief Complaint: Cold Symptoms Stated Complaint: ATHMA Time Seen by Provider: 12/01/19 11:38 History Source: Patient Exam Limitations: No Limitations Past History - Past Medical History Allergies/Adverse Reactions: Allergies Allergy/AdvReac Type Severity Reaction Status Date / Time Iodinated Contrast Media Allergy Severe seizures Verified 12/01/19 11:29 shellfish derived Allergy Intermediate Verified 12/01/19 11:29 Home Medications: Ambulatory Orders Albuterol 0.083% Nebulizer Rasheeda [Ventolin 0.083% Nebulizer Soln -] 1 neb NEB Q6H PRN 02/18/17 Albuterol Sulfate Inhaler - [Ventolin HFA Inhaler -] 2 inh PO Q6H PRN #1 inhaler 07/26/18 Montelukast Sodium [Singulair] 10 mg PO DAILY 12/01/19 predniSONE [Deltasone -] 40 mg PO DAILY #4 tablet 12/01/19 Asthma: Yes COPD: No - Immunization History Immunization Up to Date: Yes - Psycho Social/Smoking Cessation Hx Smoking History: Former smoker Have you smoked in the past 12 months: Yes Number of Cigarettes Smoked Daily: 5 If you are a former smoker, when did you quit?: 10/28 Information on smoking cessation initiated: No 'Breaking Loose' booklet given: 05/01/16 Hx Alcohol Use: No Drug/Substance Use Hx: No Substance Use Type: Alcohol Respiratory Specific PMHX - Complaint Specific PMHX Hx Bronchitis: No Hx Pneumonia: No Hx Pulmonary Embolus: No *Physical Exam - Vital Signs Last Vital Signs Temp Pulse Resp BP Pulse Ox 98.1 F 66 18 138/90 100 12/01/19 11:30 12/01/19 11:30 12/01/19 11:30 12/01/19 11:30 12/01/19 11:30 - Physical Exam General Appearance: No: Apparent Distress HEENT: positive: Normal ENT Inspection Respiratory/Chest: positive: Wheezing (very minimal wheezing). negative: Respiratory Distress, Accessory Muscle Use, Labored Respiration Cardiovascular: positive: Regular Rhythm, Regular Rate, S1, S2. negative: Murmur Integumentary: positive: Normal Color Neurologic: positive: Alert ED Treatment Course - Medications Given in the ED: ED Medications Discontinued Medications Generic Name Dose Route Start Last Admin Trade Name Freq PRN Reason Stop Dose Admin Albuterol/Ipratropium 1 amp 12/01/19 12:30 12/01/19 13:00 Duoneb - NEB 12/01/19 13:01 1 amp Q15M DALE Administration Prednisone 60 mg 12/01/19 12:19 12/01/19 12:30 Deltasone - PO 12/01/19 12:20 Not Given ONCE ONE Prednisone 20 mg 12/01/19 12:29 12/01/19 12:29 Deltasone - PO 12/01/19 12:30 20 mg ONCE ONE Administration Medical Decision Making - Medical Decision Making 44 y/o M hx of asthma, smoker (states he quit 3 days ago, 5 cigs/day x 20 years ) presents with chest tightness and SOB triggered by cold-like sxs 3 days ago. Went to [place] 3 days ago to get evaluated, but states the wait time was long, so he left. Had left over prednisone from last year, which he has used for 3 days (40 mg). States sxs feel like his asthma. Ran out of Albuterol inhaler. Also uses symbicort for his asthma. Denies fever, abd pain, n/v Given duonebs x3 and 20 mg more of Prednisone for today Patient feeling better on reassessment Advised to f/u with pcp for further management 12/01/19 13:12 Discharge - Discharge Information Problems reviewed: Yes Clinical Impression/Diagnosis: Asthma Qualifiers: Asthma severity: mild Asthma persistence: unspecified Asthma complication type : unspecified Qualified Code(s): J45.909 - Unspecified asthma, uncomplicated Condition: Stable Disposition: HOME - Admission No - Additional Discharge Information Prescriptions: predniSONE [Deltasone -] 40 mg PO DAILY #4 tablet Prescription Drug Monitoring Program (I-STOP) results: I-STOP not reviewed - Follow up/Referral Referrals: John Fitzpatrick MD [Primary Care Provider] - 2 Days - Patient Discharge Instructions Patient Printed Discharge Instructions: DI for Asthma -- Adult - Post Discharge Activity
== END 2019-12-01 13:23 | disposition home or self-care (01) ==
LOC: JERFT 11:07
PROC: 3E0F7GC Introduction of Other Therapeutic Substance into Respiratory Tract, Via Natural or Artificial Opening (ICD-10-PCS; principal; 2019-12-01)
DX: J45.909 Unspecified asthma, uncomplicated (principal)
CPT/HCPCS: 94640; 99281-25

== ENCOUNTER 2020-11-09 07:34 | Emergency (ER) | payer OTHER ==
[2020-11-09 07:48] VITALS: BP 143/88; PULSE 96; TEMP 98.1; BMI 45.6
[2020-11-09] MEDS ORDERED: DEXAMETHASONE LIQUID 0.5 MG/5 ML PO ONE (08:23)
[2020-11-09] MEDS ORDERED: DEXAMETHASONE SOD PHOSPHATE 10 MG/1 ML VIAL ONE (08:27)
== END 2020-11-09 09:33 | disposition home or self-care (01) ==
LOC: JER 07:34
DX: J06.9 Acute upper respiratory infection, unspecified (principal); J45.21 Mild intermittent asthma with (acute) exacerbation; E66.09 Other obesity due to excess calories
CPT/HCPCS: 71046-TC-FY; 99284-25

== ENCOUNTER 2020-11-11 02:02 | Inpatient (IN) | payer OTHER ==
[2020-11-11 02:31] VITALS: BMI 53.1
[2020-11-11] MEDS ORDERED: DEXAMETHASONE SOD PHOSPHATE 10 MG/1 ML VIAL IVPUSH ONE (02:34)
[2020-11-11] MEDS ORDERED: SODIUM CHLORIDE 500 ML IV STA ×2 (02:34→06:11)
[2020-11-11] MEDS ORDERED: DEXAMETHASONE SOD PHOSPHATE 10 MG/1 ML VIAL ONE (02:49)
[2020-11-11] MEDS ORDERED: ACETAMINOPHEN 1000 MG/100 ML VIAL (NON FORMULARY) IVPB ONE (02:52)
[2020-11-11 02:58] LABS: BASO % 1.3 % (0-2.0); HEMATOCRIT 43.9 % (35.4-49); HEMOGLOBIN 14.9 GM/dL (11.7-16.9); LYMPH % 22.9 % (8-40); MCH 31.9 pg (25.7-33.7); MCHC 33.9 g/dl (32.0-35.9); MEAN PLT VOLUME 9.2 fl (7.5-11.1); MONO % 10.3 % (3.8-10.2); NEUT % 65.5 % (42.8-82.8); PLATELET COUNT 223 K/MM3 (134-434); RBC 4.68 M/mm3 (4.00-5.60); RDW 12.9 % (11.9-15.9); WHITE BLOOD COUNT 7.2 K/mm3 (4.0-10.0)
[2020-11-11 03:04] LABS: INR 1.07 (0.83-1.09); PROTHROMBIN TIME (PATIENT) 12.9 SEC (9.7-13.0)
[2020-11-11 03:06] LABS: ACTIVATED PTT 28.8 SECONDS (25.2-36.5)
[2020-11-11] MEDS ORDERED: ACETAMINOPHEN INJECTION 100 ML IVPB ONE (03:10)
[2020-11-11 03:15] LABS: POTASSIUM 3.9 mmol/L (3.5-5.1)
[2020-11-11 03:18] LABS: ALBUMIN 3.8 g/dl (3.4-5.0); CALCIUM 8.1 mg/dL (8.5-10.1)
[2020-11-11 03:19] LABS: BILIRUBIN,DIRECT 0.1 mg/dL (0.0-0.2)
[2020-11-11 03:21] LABS: CREATININE 1.1 mg/dL (0.55-1.3)
[2020-11-11 03:23] LABS: BILIRUBIN,TOTAL 0.4 mg/dL (0.2-1); TOT PROT 7.7 g/dl (6.4-8.2)
[2020-11-11 03:26] LABS: N-TERMINAL BNP 10.2 pg/ml (5-125)
[2020-11-11 05:58] LABS: ARTERIAL BLD GAS O2 SATURATION 97.9 mmHg (95-98); ARTERIAL BLOOD GAS BASE EXCESS 0.8 mmol/L (-2-2); ARTERIAL BLOOD GAS PO2 92.1 mmHg (80-100); ARTERIAL BLOOD GAS pH 7.541 (7.350-7.450)
[2020-11-11 06:02] LABS: ALLENS TEST POSITIVE
[2020-11-11 06:45] LABS: URINE APPEARANCE CLEAR; URINE BILIRUBIN NEGATIVE (NEGATIVE); URINE COLOR DK YELLOW; URINE GLUCOSE (UA) NEGATIVE (NEGATIVE); URINE KETONE TRACE (NEGATIVE); URINE LEUK ESTERASE NEGATIVE (NEGATIVE); URINE NITRITE NEGATIVE (NEGATIVE); URINE PROTEIN NEGATIVE (NEGATIVE); URINE UROBILINOGEN 0.2 mg/dL (0.2-1.0)
[2020-11-11] MEDS ORDERED: methylPREDNISolone NA SUCC 40 MG/1 ML VIAL IVPUSH SCH (10:00)
[2020-11-11] MEDS ORDERED: DEXTROSE 5%-WATER - 50 ML IVPB ONE (10:54)
[2020-11-11] MEDS ORDERED: cefTRIAXone SODIUM 1 GM VIAL ONE (10:54)
[2020-11-11] MEDS: DEXAMETHASONE SOD PHOSPHATE 10 MG/1 ML VIAL IVPUSH SCH (12:14)
[2020-11-11] MEDS: ZINC SULFATE 220 MG CAPSULE (FP) PO SCH ×2 (12:16→22:36)
[2020-11-11] MEDS: FAMOTIDINE 20 MG/50 ML IVPB 20 MG/50 ML MG IVPB SCH (12:16)
[2020-11-11] MEDS: CEFTRIAXONE 1 GM in DEXTROSE 5%-WATER - 50 ML IVPB SCH (12:16)
[2020-11-11] MEDS: ASCORBIC ACID 500 MG TABLET (FP) PO SCH ×2 (12:16→22:36)
[2020-11-11] MEDS: AZITHROMYCIN IVPB 500 MG/250 ML BAG IVPB SCH (12:16)
[2020-11-11] MEDS: HEPARIN NA (PORCINE) 5,000 UNITS/ML 1ML VIAL SQ SCH ×2 (16:40→22:35)
[2020-11-12] MEDS: FAMOTIDINE 20 MG/50 ML IVPB 20 MG/50 ML MG IVPB SCH ×3 (02:34→21:32)
[2020-11-12] MEDS: HEPARIN NA (PORCINE) 5,000 UNITS/ML 1ML VIAL SQ SCH ×3 (06:20→21:32)
[2020-11-12 08:31] LABS: INR 1.06 (0.83-1.09); PROTHROMBIN TIME (PATIENT) 12.8 SEC (9.7-13.0)
[2020-11-12 08:34] LABS: ACTIVATED PTT 35.1 SECONDS (25.2-36.5)
[2020-11-12 08:38] LABS: BASO % 0.3 % (0-2.0); HEMATOCRIT 41.5 % (35.4-49); HEMOGLOBIN 14.3 GM/dL (11.7-16.9); LYMPH % 21.5 % (8-40); MCH 32.5 pg (25.7-33.7); MCHC 34.6 g/dl (32.0-35.9); MEAN PLT VOLUME 9.3 fl (7.5-11.1); MONO % 10.7 % (3.8-10.2); NEUT % 67.5 % (42.8-82.8); PLATELET COUNT 199 K/MM3 (134-434); RBC 4.41 M/mm3 (4.00-5.60); RDW 12.6 % (11.9-15.9); WHITE BLOOD COUNT 8.1 K/mm3 (4.0-10.0)
[2020-11-12 08:54] LABS: POTASSIUM 4.2 mmol/L (3.5-5.1)
[2020-11-12] MEDS ORDERED: cefTRIAXone SODIUM 1 GM VIAL ONE (08:55)
[2020-11-12] MEDS ORDERED: DEXTROSE 5%-WATER - 50 ML IVPB ONE (08:55)
[2020-11-12 09:10] LABS: ALBUMIN 3.5 g/dl (3.4-5.0)
[2020-11-12 09:11] LABS: CALCIUM 8.5 mg/dL (8.5-10.1)
[2020-11-12 09:12] LABS: MAGNESIUM 2.3 mg/dL (1.8-2.4)
[2020-11-12 09:14] LABS: CREATININE 0.9 mg/dL (0.55-1.3)
[2020-11-12 09:15] LABS: PHOSPHOROUS 3.5 mg/dL (2.5-4.9)
[2020-11-12 09:16] LABS: BILIRUBIN,TOTAL 0.6 mg/dL (0.2-1); TOT PROT 7.1 g/dl (6.4-8.2)
[2020-11-12] MEDS: ASCORBIC ACID 500 MG TABLET (FP) PO SCH ×2 (09:30→21:32)
[2020-11-12] MEDS: DEXAMETHASONE SOD PHOSPHATE 10 MG/1 ML VIAL IVPUSH SCH (09:30)
[2020-11-12] MEDS: ZINC SULFATE 220 MG CAPSULE (FP) PO SCH ×2 (09:30→21:32)
[2020-11-12] MEDS: AZITHROMYCIN IVPB 500 MG/250 ML BAG IVPB SCH (09:31)
[2020-11-12] MEDS: CEFTRIAXONE 1 GM in DEXTROSE 5%-WATER - 50 ML IVPB SCH (09:31)
[2020-11-12] MEDS: ALBUTEROL SO4 HFA INHALER IH PRN (11:00)
[2020-11-12] MEDS ORDERED: PT OWN MED DRAWER 7, Y5N ONE (12:48)
[2020-11-12] MEDS: BUDESONIDE/FORMETEROL FUMARATE 80/4.5 mcg INHALER IH SCH (12:50)
[2020-11-12] MEDS: CHOLECALCIFEROL (VIT D3) 1,000 UNIT (25 MCG) TABLET PO SCH (12:50)
[2020-11-13] MEDS ORDERED: ACETAMINOPHEN 1000 MG/100 ML VIAL (NON FORMULARY) IVPB ONE (04:36)
[2020-11-13] MEDS ORDERED: ACETAMINOPHEN 325 MG TABLET (FP) ONE (04:41)
[2020-11-13] MEDS: BUDESONIDE/FORMETEROL FUMARATE 80/4.5 mcg INHALER IH SCH ×3 (07:08→22:00)
[2020-11-13] MEDS: HEPARIN NA (PORCINE) 5,000 UNITS/ML 1ML VIAL SQ SCH ×3 (07:08→22:11)
[2020-11-13] MEDS ORDERED: cefTRIAXone SODIUM 1 GM VIAL ONE (08:47)
[2020-11-13] MEDS ORDERED: DEXTROSE 5%-WATER - 50 ML IVPB ONE (08:47)
[2020-11-13] MEDS ORDERED: PT OWN MED DRAWER 7, Y5N ONE (09:24)
[2020-11-13] MEDS: CHOLECALCIFEROL (VIT D3) 1,000 UNIT (25 MCG) TABLET PO SCH (09:51)
[2020-11-13] MEDS: ZINC SULFATE 220 MG CAPSULE (FP) PO SCH ×2 (09:51→22:12)
[2020-11-13] MEDS: DEXAMETHASONE SOD PHOSPHATE 10 MG/1 ML VIAL IVPUSH SCH (09:51)
[2020-11-13] MEDS: AZITHROMYCIN IVPB 500 MG/250 ML BAG IVPB SCH (09:52)
[2020-11-13] MEDS: CEFTRIAXONE 1 GM in DEXTROSE 5%-WATER - 50 ML IVPB SCH (09:52)
[2020-11-13] MEDS: ASCORBIC ACID 500 MG TABLET (FP) PO SCH ×2 (09:52→22:12)
[2020-11-13] MEDS: FAMOTIDINE 20 MG/50 ML IVPB 20 MG/50 ML MG IVPB SCH (09:52)
[2020-11-13] MEDS: ALBUTEROL SO4 HFA INHALER IH PRN (09:52)
[2020-11-13] MEDS ORDERED: REMDESIVIR 200 MG in SODIUM CHLORIDE 210 ML IVPB ONE (12:00)
[2020-11-14] MEDS ORDERED: ACETAMINOPHEN 1000 MG/100 ML VIAL (NON FORMULARY) IVPB ONE (00:39)
[2020-11-14] MEDS: HEPARIN NA (PORCINE) 5,000 UNITS/ML 1ML VIAL SQ SCH ×3 (05:52→22:43)
[2020-11-14] MEDS ORDERED: cefTRIAXone SODIUM 1 GM VIAL ONE (09:21)
[2020-11-14] MEDS ORDERED: DEXTROSE 5%-WATER - 50 ML IVPB ONE (09:21)
[2020-11-14] MEDS: CEFTRIAXONE 1 GM in DEXTROSE 5%-WATER - 50 ML IVPB SCH (10:55)
[2020-11-14] MEDS: CHOLECALCIFEROL (VIT D3) 1,000 UNIT (25 MCG) TABLET PO SCH (10:55)
[2020-11-14] MEDS: DEXAMETHASONE SOD PHOSPHATE 10 MG/1 ML VIAL IVPUSH SCH (10:55)
[2020-11-14] MEDS: BUDESONIDE/FORMETEROL FUMARATE 80/4.5 mcg INHALER IH SCH ×2 (10:56→22:43)
[2020-11-14] MEDS: ASCORBIC ACID 500 MG TABLET (FP) PO SCH ×2 (10:56→22:43)
[2020-11-14] MEDS: AZITHROMYCIN IVPB 500 MG/250 ML BAG IVPB SCH (10:56)
[2020-11-14] MEDS: FAMOTIDINE 20 MG/50 ML IVPB 20 MG/50 ML MG IVPB SCH ×2 (10:56→22:43)
[2020-11-14] MEDS: ZINC SULFATE 220 MG CAPSULE (FP) PO SCH ×2 (11:04→22:43)
[2020-11-14] MEDS: REMDESIVIR 100 MG in SODIUM CHLORIDE 230 ML IVPB SCH (11:30)
[2020-11-14] MEDS: MONTELUKAST NA 10 MG TABLET PO SCH (22:43)
[2020-11-15] MEDS: HEPARIN NA (PORCINE) 5,000 UNITS/ML 1ML VIAL SQ SCH (06:26)
[2020-11-15 06:59] LABS: POTASSIUM 3.8 mmol/L (3.5-5.1)
[2020-11-15 07:02] LABS: CALCIUM 8.1 mg/dL (8.5-10.1)
[2020-11-15 07:03] LABS: ALBUMIN 3.2 g/dl (3.4-5.0)
[2020-11-15 07:06] LABS: CREATININE 0.9 mg/dL (0.55-1.3)
[2020-11-15 07:07] LABS: BILIRUBIN,TOTAL 0.9 mg/dL (0.2-1); TOT PROT 6.8 g/dl (6.4-8.2)
[2020-11-15] MEDS: DEXAMETHASONE SOD PHOSPHATE 10 MG/1 ML VIAL IVPUSH SCH (10:01)
[2020-11-15] MEDS: ASCORBIC ACID 500 MG TABLET (FP) PO SCH ×2 (10:01→21:40)
[2020-11-15] MEDS: FAMOTIDINE 20 MG/50 ML IVPB 20 MG/50 ML MG IVPB SCH ×2 (10:01→21:40)
[2020-11-15] MEDS: ZINC SULFATE 220 MG CAPSULE (FP) PO SCH ×2 (10:01→21:40)
[2020-11-15] MEDS: BUDESONIDE/FORMETEROL FUMARATE 80/4.5 mcg INHALER IH SCH ×2 (10:10→21:50)
[2020-11-15] MEDS ORDERED: PT OWN MED DRAWER 7, Y5N ONE ×2 (10:51→21:22)
[2020-11-15] MEDS: REMDESIVIR 100 MG in SODIUM CHLORIDE 230 ML IVPB SCH (12:18)
[2020-11-15] MEDS: CHOLECALCIFEROL (VIT D3) 1,000 UNIT (25 MCG) TABLET PO SCH (12:18)
[2020-11-15] MEDS: ALBUTEROL SO4 HFA INHALER IH PRN (20:15)
[2020-11-15] MEDS: MONTELUKAST NA 10 MG TABLET PO SCH (21:40)
[2020-11-15] MEDS: ENOXAPARIN NA (PORCINE) 120 MG/0.8 ML DISP.SYRIN SQ SCH (21:40)
[2020-11-16 07:36] LABS: POTASSIUM 4.3 mmol/L (3.5-5.1)
[2020-11-16 07:41] LABS: BLOOD UREA NITROGEN 20.7 mg/dL (7-18); CALCIUM 8.5 mg/dL (8.5-10.1)
[2020-11-16 07:42] LABS: ALBUMIN 3.1 g/dl (3.4-5.0)
[2020-11-16 07:45] LABS: CREATININE 0.7 mg/dL (0.55-1.3); HEMATOCRIT 39.4 % (35.4-49); HEMOGLOBIN 13.7 GM/dL (11.7-16.9); MCH 32.4 pg (25.7-33.7); MCHC 34.9 g/dl (32.0-35.9); MEAN CELL VOLUME 92.9 fl (80-96); MEAN PLT VOLUME 9.7 fl (7.5-11.1); PLATELET COUNT 251 K/MM3 (134-434); RBC 4.24 M/mm3 (4.00-5.60); RDW 12.6 % (11.9-15.9); WHITE BLOOD COUNT 6.6 K/mm3 (4.0-10.0)
[2020-11-16 07:46] LABS: BILIRUBIN,TOTAL 0.5 mg/dL (0.2-1)
[2020-11-16] MEDS ORDERED: PT OWN MED DRAWER 7, Y5N ONE (09:29)
[2020-11-16] MEDS: FAMOTIDINE 20 MG/50 ML IVPB 20 MG/50 ML MG IVPB SCH ×3 (09:41→21:23)
[2020-11-16] MEDS: DEXAMETHASONE SOD PHOSPHATE 10 MG/1 ML VIAL IVPUSH SCH (09:41)
[2020-11-16] MEDS: ZINC SULFATE 220 MG CAPSULE (FP) PO SCH ×2 (09:41→21:23)
[2020-11-16] MEDS: ASCORBIC ACID 500 MG TABLET (FP) PO SCH ×2 (09:41→21:23)
[2020-11-16] MEDS: CHOLECALCIFEROL (VIT D3) 1,000 UNIT (25 MCG) TABLET PO SCH (09:42)
[2020-11-16] MEDS: ENOXAPARIN NA (PORCINE) 120 MG/0.8 ML DISP.SYRIN SQ SCH (09:42)
[2020-11-16] MEDS: BUDESONIDE/FORMETEROL FUMARATE 80/4.5 mcg INHALER IH SCH ×2 (09:42→21:35)
[2020-11-16] MEDS: REMDESIVIR 100 MG in SODIUM CHLORIDE 230 ML IVPB SCH (11:10)
[2020-11-16 12:01] LABS: PH,URINE 5.5 (5.0-8.0); URINE APPEARANCE CLEAR; URINE BILIRUBIN NEGATIVE (NEGATIVE); URINE COLOR YELLOW; URINE GLUCOSE (UA) NEGATIVE (NEGATIVE); URINE KETONE TRACE (NEGATIVE); URINE LEUK ESTERASE NEGATIVE (NEGATIVE); URINE NITRITE NEGATIVE (NEGATIVE); URINE PROTEIN NEGATIVE (NEGATIVE); URINE UROBILINOGEN 0.2 mg/dL (0.2-1.0)
[2020-11-16] MEDS: MONTELUKAST NA 10 MG TABLET PO SCH (21:23)
[2020-11-16] MEDS: HEPARIN NA (PORCINE) 5,000 UNITS/ML 1ML VIAL SQ SCH (21:24)
[2020-11-17] MEDS: HEPARIN NA (PORCINE) 5,000 UNITS/ML 1ML VIAL SQ SCH ×2 (05:13→14:34)
[2020-11-17 08:10] LABS: HEMATOCRIT 40.2 % (35.4-49); HEMOGLOBIN 13.9 GM/dL (11.7-16.9); MCH 32.1 pg (25.7-33.7); MCHC 34.4 g/dl (32.0-35.9); MEAN CELL VOLUME 93.2 fl (80-96); MEAN PLT VOLUME 9.8 fl (7.5-11.1); PLATELET COUNT 300 K/MM3 (134-434); RBC 4.32 M/mm3 (4.00-5.60); RDW 12.6 % (11.9-15.9); WHITE BLOOD COUNT 9.9 K/mm3 (4.0-10.0)
[2020-11-17 08:15] LABS: POTASSIUM 4.5 mmol/L (3.5-5.1)
[2020-11-17 08:18] LABS: ALBUMIN 3.2 g/dl (3.4-5.0); BLOOD UREA NITROGEN 20.6 mg/dL (7-18); CALCIUM 8.5 mg/dL (8.5-10.1)
[2020-11-17 08:22] LABS: BILIRUBIN,TOTAL 0.4 mg/dL (0.2-1); CREATININE 0.8 mg/dL (0.55-1.3)
[2020-11-17] MEDS ORDERED: ASPIRIN COATED 81 MG TABLET.EC PO SCH (10:00)
[2020-11-17] MEDS: DEXAMETHASONE SOD PHOSPHATE 10 MG/1 ML VIAL IVPUSH SCH (10:12)
[2020-11-17] MEDS: CHOLECALCIFEROL (VIT D3) 1,000 UNIT (25 MCG) TABLET PO SCH (10:12)
[2020-11-17] MEDS: ZINC SULFATE 220 MG CAPSULE (FP) PO SCH (10:13)
[2020-11-17] MEDS: FAMOTIDINE 20 MG/50 ML IVPB 20 MG/50 ML MG IVPB SCH (10:13)
[2020-11-17] MEDS: BUDESONIDE/FORMETEROL FUMARATE 80/4.5 mcg INHALER IH SCH (10:13)
[2020-11-17] MEDS: ASCORBIC ACID 500 MG TABLET (FP) PO SCH (10:13)
[2020-11-17] MEDS: ALBUTEROL SO4 HFA INHALER IH PRN (10:16)
[2020-11-17] MEDS: REMDESIVIR 100 MG in SODIUM CHLORIDE 230 ML IVPB SCH (12:24)
[2020-11-17 15:04] VITALS: BP 122/77; PULSE 66; TEMP 98.2
== END 2020-11-17 16:28 | disposition home or self-care (01) | DRG 137 ==
LOC: JER 02:02 → JERBED 05:21 → J4W 10:00
PROVIDERS: ADMIT Internal Medicine; ATTEND Internal Medicine
PROC: XW13325 Transfusion of Convalescent Plasma (Nonautologous) into Peripheral Vein, Percutaneous Approach, New Technology Group 5 (ICD-10-PCS; principal; 2020-11-13)
PROC: XW033E5 Introduction of Remdesivir Anti-infective into Peripheral Vein, Percutaneous Approach, New Technology Group 5 (ICD-10-PCS; 2020-11-13)
DX: U07.1 COVID-19 (principal); J96.01 Acute respiratory failure with hypoxia; J12.89 Other viral pneumonia; E66.01 Morbid (severe) obesity due to excess calories; J45.901 Unspecified asthma with (acute) exacerbation; Z68.43 Body mass index [BMI] 50.0-59.9, adult; R73.03 Prediabetes; G47.33 Obstructive sleep apnea (adult) (pediatric)
CPT/HCPCS: 36415; 36430; 36600; 71250-TC; 80053; 81003; 82248; 82550; 82728; 82803; 83036; 83605; 83615; 83735; 83880; 84100; 84484; 85025; 85027; 85379; 85610; 85730; 86140; 86850; 86870; 86900; 86901; 86902; 87040; 87086; 87804; 87807; 87899; 93005; 93010; 94761; 97116-GP; 97161-GP; 99285-25; C9399; C9803; J0131; J1100; J1644; P9017; U0003